=== PATIENT | female | born 1995 | race African-American/Black ===

== ENCOUNTER 2019-05-03 15:17 | Emergency (ER) | payer OTHER ==
[~2019-05-03] VITALS: Ht 162.6 cm; Wt 61.0 kg
[2019-05-03] MEDS ORDERED: IBUPROFEN 600MG TABLET PO ONE (15:45)
[2019-05-03 17:03] VITALS: BP 110/72
== END 2019-05-03 17:11 | disposition home or self-care (01) ==
LOC: ER 15:17
DX: S90.32XA Contusion of left foot, initial encounter (principal); W19.XXXA Unspecified fall, initial encounter; Y93.89 Activity, other specified; Y92.89 Other specified places as the place of occurrence of the external cause; Y99.8 Other external cause status
CPT/HCPCS: 73630; 81025; 99283